=== PATIENT | female | born 1940 ===

== ENCOUNTER 2020-03-25 16:40 | Inpatient (IN) ==
[2020-03-25 18:28] LABS: Basophils % 0.4 %; Eosinophils # 0.4 K/mcL (0.0-0.6); Eosinophils % 3.5 %; Hematocrit 41.5 % (35.3-44.9); Hemoglobin 13.4 g/dL (11.5-15.4); Immature Granulocytes % 8.4 % (0-4); Lymphocytes # 2.3 K/mcL (0.6-4.6); Lymphocytes % 21.3 %; Mean Corpuscular HGB Conc 32.3 g/dL (31.6-35.5); Mean Corpuscular Hemoglobin 33.2 pg (28.0-33.3); Mean Corpuscular Volume 102.7 fL (83.0-100.0); Mean Platelet Volume 9.7 fL (9.4-12.4); Monocytes # 1.1 K/mcL (0.0-1.3); Neutrophils # 6.2 K/mcL (1.6-8.9); Platelet Count 173 K/mcL (140-400); Red Blood Count 4.04 M/mcL (3.82-4.97); Red Cell Distribution Width 15.5 % (11.5-14.5); Segmented Neutrophils % 56.4 %; White Blood Count 10.9 K/mcL (4.3-11.1)
[2020-03-25 18:47] LABS: Alanine Aminotransferase 13 Units/L (7-52); Albumin 2.4 g/dL (3.5-5.7); Albumin/Globulin Ratio 0.7 (1.1-2.2); Alkaline Phosphatase 111 Units/L (34-104); Aspartate Amino Transferase 25 Units/L (13-39); BUN/Creatinine Ratio 40 (6-26); Bilirubin,Direct 0.1 mg/dL (0.0-0.2); Bilirubin,Indirect 0.4 mg/dL (0.0-1.0); Bilirubin,Total 0.5 mg/dL (0.3-1.0); Blood Urea Nitrogen 33 mg/dL (8-23); Calcium 9.4 mg/dL (8.6-10.3); Carbon Dioxide 28 mEq/L (23-29); Chloride 103 mEq/L (98-107); Globulin 3.3 g/dL (2.4-3.5); Glucose 75 mg/dL (70-105); Lipase 13 Units/L (11-82); Osmolality,Calculated 298 (280-300); Potassium 3.3 mEq/L (3.5-5.1); Sodium 141 mEq/L (136-145); Total Protein 5.7 g/dL (6.4-8.9); Troponin I < 0.03 ng/mL (< 0.04); eGFR For African Americans > 60 (> 60); eGFR For Non-African Americans > 60 (> 60)
[2020-03-25] MEDS ORDERED: Isovue-370 500 ML BOTTLE IVP ONE (18:53)
[2020-03-25 18:56] LABS: Anisocytosis 1+ (Not Present); Platelet Estimate Normal (Normal); Toxic Granulation Present (Not Present)
[2020-03-25 19:11] LABS: Bilirubin,Urine Negative (Negative); Blood,Urine Small (Negative); Clarity,Urine Cloudy (Clear); Color,Urine Yellow (Yellow); Glucose,Urine (UA) Normal (Normal); Ketones,Urine Trace mg/dL (Negative); Leukocyte Esterase,Urine Large (Negative); Nitrite,Urine Positive (Negative); PH,Urine 8.5 pH Units (5.0-8.0); Protein,Urine 100 mg/dL (Neg-Trace); Urobilinogen,Urine Normal (Normal)
[2020-03-25 19:17] LABS: WBC,Urine TNTC per hpf (0-3)
[2020-03-25 19:18] LABS: Bacteria,Urine Many per hpf (None-Few); Squamous Epithelial Cell,Urine Few per hpf (None-Few)
[2020-03-25] MEDS ORDERED: MetroNIDAZOLE 500 MG/100 ML 500 MG/100 ML BAG IVPB ONE (20:57)
[2020-03-25] MEDS ORDERED: 0.9 % Sodium Chloride 1,000 ML IVC ONE (22:38)
[2020-03-26] MEDS ORDERED: 0.9 % Sodium Chloride 1,000 ML IVC ONE ×2 (00:43)
[2020-03-26] MEDS ORDERED: 0.9 % Sodium Chloride 1,000 ML ONE ×2 (00:45→02:44)
[2020-03-26 01:23] LABS: ABG Base Excess 1 mEq/L (-2 to 3); ABG HCO3 28 mEq/L (21-27); ABG Oxygen Saturation 98 % (95-98); ABG PCO2 53 mmHg (35-45); ABG PH 7.33 pH Units (7.32-7.45); ABG PO2 112 mmHg (85-104); ABG TCO2 30 mEq/L (20-26)
[2020-03-26] MEDS ORDERED: Naloxone 0.4 MG/ML INJ IVP PRN (02:44)
[2020-03-26] MEDS ORDERED: Isovue-370 500 ML BOTTLE IVP ONE (02:44)
[2020-03-26] MEDS: 0.9 % Sodium Chloride 1,000 ML IVC SCH ×2 (03:26→14:41)
[2020-03-26] MEDS: Famotidine 20 MG TABLET PO SCH ×2 (03:27→14:40)
[2020-03-26] MEDS: NUEDEXTA PO SCH ×2 (06:07→17:17)
[2020-03-26 08:18] LABS: Eosinophils # 0.2 K/mcL (0.0-0.6); Hematocrit 40.5 % (35.3-44.9); Hemoglobin 12.8 g/dL (11.5-15.4); Mean Corpuscular HGB Conc 31.6 g/dL (31.6-35.5); Mean Corpuscular Hemoglobin 32.6 pg (28.0-33.3); Mean Corpuscular Volume 103.1 fL (83.0-100.0); Mean Platelet Volume 9.5 fL (9.4-12.4); Platelet Count 105 K/mcL (140-400); Red Blood Count 3.93 M/mcL (3.82-4.97); Red Cell Distribution Width 15.5 % (11.5-14.5); White Blood Count 5.3 K/mcL (4.3-11.1)
[2020-03-26 08:40] LABS: BUN/Creatinine Ratio 37 (6-26); Blood Urea Nitrogen 30 mg/dL (8-23); Calcium 8.5 mg/dL (8.6-10.3); Carbon Dioxide 27 mEq/L (23-29); Chloride 109 mEq/L (98-107); Glucose 71 mg/dL (70-105); Osmolality,Calculated 303 (280-300); Potassium 3.2 mEq/L (3.5-5.1); Sodium 144 mEq/L (136-145); eGFR For African Americans > 60 (> 60); eGFR For Non-African Americans > 60 (> 60)
[2020-03-26] MEDS: MetroNIDAZOLE 500 MG/100 ML 500 MG/100 ML BAG IVPB SCH ×3 (09:30→23:16)
[2020-03-26] MEDS: Divalproex (12 HR) 250 MG TABLET PO SCH ×3 (09:32→20:50)
[2020-03-26 10:20] LABS: Lymphocytes # 0.7 K/mcL (0.6-4.6); Monocytes # 0.6 K/mcL (0.0-1.3); Neutrophils # 3.1 K/mcL (1.6-8.9)
[2020-03-26 10:21] LABS: Anisocytosis 1+ (Not Present); Platelet Estimate Normal (Normal); Polychromasia 1+ (Not Present); Toxic Granulation Present (Not Present); Toxic Vacuolation Present (Not Present)
[2020-03-26] MEDS ORDERED: Potassium Chloride Elixir 20 MEQ/15 ML UDC PO ONE (11:48)
[2020-03-27] MEDS: Famotidine 20 MG TABLET PO SCH (03:40)
[2020-03-27] MEDS: NUEDEXTA PO SCH ×2 (07:10→17:08)
[2020-03-27] MEDS: 0.9 % Sodium Chloride 1,000 ML IVC SCH ×2 (07:57→22:10)
[2020-03-27] MEDS: Divalproex (12 HR) 250 MG TABLET PO SCH ×3 (09:56→22:25)
[2020-03-27] MEDS: Lactobacillus 1 EACH CAP.SPRINK PO SCH ×2 (09:56→22:26)
[2020-03-27] MEDS: MetroNIDAZOLE 500 MG/100 ML 500 MG/100 ML BAG IVPB SCH ×2 (09:57→17:02)
[2020-03-27 10:15] LABS: Hematocrit 36.4 % (35.3-44.9); Hemoglobin 11.6 g/dL (11.5-15.4); Mean Corpuscular HGB Conc 31.9 g/dL (31.6-35.5); Mean Corpuscular Hemoglobin 32.6 pg (28.0-33.3); Mean Corpuscular Volume 102.2 fL (83.0-100.0); Mean Platelet Volume 9.5 fL (9.4-12.4); Platelet Count 138 K/mcL (140-400); Red Blood Count 3.56 M/mcL (3.82-4.97); Red Cell Distribution Width 15.6 % (11.5-14.5); White Blood Count 12.4 K/mcL (4.3-11.1)
[2020-03-27 10:36] LABS: BUN/Creatinine Ratio 35 (6-26); Basophils # 0.3 K/mcL (0.0-0.2); Blood Urea Nitrogen 24 mg/dL (8-23); Calcium 8.1 mg/dL (8.6-10.3); Carbon Dioxide 25 mEq/L (23-29); Chloride 112 mEq/L (98-107); Glucose 112 mg/dL (70-105); Lymphocytes # 2.2 K/mcL (0.6-4.6); Neutrophils # 9.7 K/mcL (1.6-8.9); Osmolality,Calculated 303 (280-300); Potassium 3.1 mEq/L (3.5-5.1); Sodium 144 mEq/L (136-145); eGFR For African Americans > 60 (> 60); eGFR For Non-African Americans > 60 (> 60)
[2020-03-27] MEDS ORDERED: Potassium Chloride Elixir 20 MEQ/15 ML UDC PO ONE (22:07)
[2020-03-28] MEDS: MetroNIDAZOLE 500 MG/100 ML 500 MG/100 ML BAG IVPB SCH ×2 (00:38→08:33)
[2020-03-28] MEDS ORDERED: 0.9 % Sodium Chloride 1,000 ML IVC ONE (04:34)
[2020-03-28] MEDS: NUEDEXTA PO SCH ×2 (04:36→13:45)
[2020-03-28 06:50] LABS: Eosinophils # 0.3 K/mcL (0.0-0.6); Hematocrit 30.4 % (35.3-44.9); Hemoglobin 9.9 g/dL (11.5-15.4); Mean Corpuscular HGB Conc 32.6 g/dL (31.6-35.5); Mean Corpuscular Hemoglobin 32.9 pg (28.0-33.3); Mean Platelet Volume 9.5 fL (9.4-12.4); Platelet Count 108 K/mcL (140-400); Red Blood Count 3.01 M/mcL (3.82-4.97); Red Cell Distribution Width 15.8 % (11.5-14.5); White Blood Count 7.6 K/mcL (4.3-11.1)
[2020-03-28 07:02] LABS: BUN/Creatinine Ratio 30 (6-26); Blood Urea Nitrogen 18 mg/dL (8-23); Calcium 7.2 mg/dL (8.6-10.3); Carbon Dioxide 23 mEq/L (23-29); Chloride 114 mEq/L (98-107); Glucose 72 mg/dL (70-105); Osmolality,Calculated 292 (280-300); Potassium 2.9 mEq/L (3.5-5.1); Sodium 141 mEq/L (136-145); eGFR For African Americans > 60 (> 60); eGFR For Non-African Americans > 60 (> 60)
[2020-03-28] MEDS: Divalproex (12 HR) 250 MG TABLET PO SCH ×3 (08:35→19:55)
[2020-03-28] MEDS: Lactobacillus 1 EACH CAP.SPRINK PO SCH ×2 (08:35→19:55)
[2020-03-28 08:44] LABS: Lymphocytes # 0.9 K/mcL (0.6-4.6); Monocytes # 0.3 K/mcL (0.0-1.3); Neutrophils # 5.6 K/mcL (1.6-8.9); Platelet Estimate Decreased (Normal)
[2020-03-28] MEDS ORDERED: 0.9 % Sodium Chloride 500 ML IVC ONE (11:05)
[2020-03-28] MEDS: Ertapenem 1,000 MG in 0.9 % Sodium Chloride Mini Bag 100 ML IVPB SCH (11:44)
[2020-03-28] MEDS: 0.9 % Sodium Chloride 1,000 ML IVC SCH ×2 (11:47→19:55)
[2020-03-28] MEDS ORDERED: 0.9 % Sodium Chloride 250 ML IVC PRN (15:13)
[2020-03-28] MEDS: Vancomycin Oral Soln 125 MG/2.5 ML UDC PO SCH ×2 (17:06→19:55)
[2020-03-29] MEDS: 0.9 % Sodium Chloride 1,000 ML IVC SCH (03:35)
[2020-03-29] MEDS: NUEDEXTA PO SCH ×2 (05:17→16:04)
[2020-03-29 07:03] LABS: Eosinophils # 0.2 K/mcL (0.0-0.6); Hematocrit 31.5 % (35.3-44.9); Hemoglobin 10.2 g/dL (11.5-15.4); Lymphocytes # 1.2 K/mcL (0.6-4.6); Mean Corpuscular HGB Conc 32.4 g/dL (31.6-35.5); Mean Corpuscular Hemoglobin 32.6 pg (28.0-33.3); Mean Corpuscular Volume 100.6 fL (83.0-100.0); Mean Platelet Volume 9.5 fL (9.4-12.4); Platelet Count 139 K/mcL (140-400); Red Blood Count 3.13 M/mcL (3.82-4.97); Red Cell Distribution Width 16.2 % (11.5-14.5); White Blood Count 8.6 K/mcL (4.3-11.1)
[2020-03-29 07:50] LABS: Monocytes # 0.5 K/mcL (0.0-1.3); Neutrophils # 5.9 K/mcL (1.6-8.9); Platelet Estimate Decreased (Normal)
[2020-03-29 07:53] LABS: BUN/Creatinine Ratio 25 (6-26); Blood Urea Nitrogen 14 mg/dL (8-23); Calcium 7.6 mg/dL (8.6-10.3); Carbon Dioxide 20 mEq/L (23-29); Chloride 117 mEq/L (98-107); Glucose 65 mg/dL (70-105); Osmolality,Calculated 291 (280-300); Potassium 3.8 mEq/L (3.5-5.1); Sodium 141 mEq/L (136-145); eGFR For African Americans > 60 (> 60); eGFR For Non-African Americans > 60 (> 60)
[2020-03-29] MEDS: Divalproex (12 HR) 250 MG TABLET PO SCH ×3 (10:24→21:11)
[2020-03-29] MEDS: Lactobacillus 1 EACH CAP.SPRINK PO SCH ×2 (10:24→21:11)
[2020-03-29] MEDS: Ertapenem 1,000 MG in 0.9 % Sodium Chloride Mini Bag 100 ML IVPB SCH (12:10)
[2020-03-29] MEDS ORDERED: Furosemide 20 MG/2 ML VIAL IVP ONE (15:38)
[2020-03-29] MEDS ORDERED: Albumin 25% 25gram/100mL 25 GM/100 ML IV.SOLN IVPB ONE (15:38)
[2020-03-29] MEDS: Vancomycin Oral Soln 125 MG/2.5 ML UDC PO SCH ×2 (18:37→21:11)
[2020-03-30] MEDS: NUEDEXTA PO SCH (06:15)
[2020-03-30 06:33] LABS: BUN/Creatinine Ratio 18 (6-26); Blood Urea Nitrogen 10 mg/dL (8-23); Calcium 7.9 mg/dL (8.6-10.3); Carbon Dioxide 22 mEq/L (23-29); Chloride 114 mEq/L (98-107); Glucose 63 mg/dL (70-105); Osmolality,Calculated 291 (280-300); Potassium 3.3 mEq/L (3.5-5.1); Sodium 142 mEq/L (136-145); eGFR For African Americans > 60 (> 60); eGFR For Non-African Americans > 60 (> 60)
[2020-03-30 06:47] VITALS: BP 125/65
[2020-03-30] MEDS: Vancomycin Oral Soln 125 MG/2.5 ML UDC PO SCH ×2 (09:12→12:01)
[2020-03-30] MEDS: Lactobacillus 1 EACH CAP.SPRINK PO SCH (09:12)
[2020-03-30] MEDS: Divalproex (12 HR) 250 MG TABLET PO SCH (09:13)
[2020-03-30] MEDS: Ertapenem 1,000 MG in 0.9 % Sodium Chloride Mini Bag 100 ML IVPB SCH (11:56)
== END 2020-03-30 14:03 | DRG 371 ==
LOC: EMEROOPIK 16:40 → INPPIK 16:40
PROVIDERS: ADMIT Family Medicine; ATTEND Family Medicine